=== PATIENT | male | born 1950 | race Caucasian/White ===

== ENCOUNTER 2018-05-24 11:00 | Day surgery (SDC) | payer MEDICARE ==
[2018-05-23 11:38] VITALS: BMI 41.8
--- NOTE | 2018-05-24 15:19 | EKG ---
Test Reason : PREOP MRI Blood Pressure : / mmHG Vent. Rate : 077 BPM Atrial Rate : 077 BPM P-R Int : 166 ms QRS Dur : 138 ms QT Int : 442 ms P-R-T Axes : 058 067 050 degrees QTc Int : 500 ms Normal sinus rhythm Right bundle branch block Abnormal ECG When compared with ECG of 01-AUG-2016 11:08, Right bundle branch block is now Present Confirmed by CONCETTA FRANCE, CLAUDIA ([id number]) on 05/24/2018 3:18:34 PM Referred By: NATAN Confirmed By:CLAUDIA HYLTON MD
[2018-05-24 15:53] LABS: Calc. Creatinine Clearance 163 mL/min (70-130); Estimated GFR-MDRD Greater than 90
== END 2018-05-24 13:15 | disposition home or self-care (01) ==
LOC: SDC/OP 11:00
PROVIDERS: ATTEND Neurological Surgery
DX: M54.16 Radiculopathy, lumbar region (principal); F40.240 Claustrophobia; Z79.899 Other long term (current) drug therapy; Z88.0 Allergy status to penicillin; Z98.890 Other specified postprocedural states
CPT/HCPCS: 82565; 93005; 93010

== ENCOUNTER 2018-06-14 06:51 | Outpatient (CLI) | payer MEDICARE ==
[2018-06-13 09:24] VITALS: BMI 43.9
[2018-06-14 08:04] VITALS: BP 163/86; TEMP 98.3
--- NOTE | 2018-06-14 10:01 | RAD ---
LUMBAR MYELOGRAM: HISTORY: Lumbar radiculopathy. Pain. COMPARISON: None. EXPOSURE: 1.7 minutes 3814.5 mGy per m2. FINDINGS: Initial telephone triage nurse radiograph of the lumbar spine demonstrates five lumbar type vertebral bodies. Vertebr al body height is maintained. Disk space heights are preserved. No spondylolisthesis or spondylosis . Atherosclerosis of the aorta is noted. IMPRESSION: Successful lumbar myelogram. A total of 10 mL of Isovue-200M contrast was administered intrathecally . Contrast was administered at the L2-L3 level. There were no immediate or post procedure complicat ions. TECHNIQUE: Consent obtained to perform a lumbar puncture for intrathecal contrast administration. The patient's back was evaluated. The L2-L3 level was deemed appropriate. The skin was prepped and draped in a s terile fashion, and 1% Lidocaine, buffered with sodium bicarbonate, was used for local anesthesia. U nder fluoroscopic guidance, a 22 gauge spinal needle was advanced into the CSF space. The inner styl et was removed. There was prompt flow of clear CSF into the hub of the needle. Via a short tubing c atheter, a total of 10 mL of Isovue-200M contrast was administered intrathecally. The patient tolera ambreen the procedure well. There were no immediate or post procedure complications. IMPRESSION: Successful lumbar puncture for intrathecal contrast administration. POS: [facility]
--- NOTE | 2018-06-14 11:13 | CT ---
POST MYELOGRAM LUMBAR SPINE CT: HISTORY: Lumbar radiculopathy. COMPARISON: None. TECHNIQUE: Post myelogram lumbar spine CT is performed in the axial plane. Reformatted images are submitted for interpretation. FINDINGS: Nonobstructing calculus in the right renal pelvis, measuring 6 mm. Symmetric attenuation of the psoa s muscles. Atherosclerosis of a nonaneurysmal aorta. Lumbar spine vertebral body height is maintained. No fracture. No spondylolisthesis or spondylolysi s. The conus medullaris terminates at the superior aspect of L1. Lumbar spine vertebral body height is maintained. No malalignment on the coronal reformatted images. The transverse processes are intact. Vacuum joint phenomenon involving both SI joints. Vacuum marcie nt phenomenon in the bilateral facet joints at L4-L5 and in the right facet joint at L5-S1. T11-T12: No significant central canal stenosis or foraminal narrowing. T12-L1: No significant central canal stenosis or foraminal narrowing. L1-L2: No significant central canal stenosis. The neural foramina are patent. L2-L3: No significant central canal stenosis. The neural foramina are patent. There is mild ligame ntum flavum thickening. L3-L4: No significant central canal stenosis. Mild to moderate right and mild left neural foraminal narrowing. L4-L5: There is a generalized disk bulge and posterior element hypertrophy that results in at least mild central canal stenosis. Moderate bilateral neural foraminal narrowing. L5-S1: No high grade central canal stenosis. Moderate to severe bilateral foraminal narrowing. 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 IMPRESSION: 1. Degenerative changes of the lumbar spine, as above. 2. Mild central canal stenosis at L4-L5. 3. Significant neural foraminal narrowing at multiple levels, as detailed above. POS: [facility]
== END 2018-06-14 10:00 | disposition home or self-care (01) ==
LOC: RAD 06:51
PROVIDERS: ATTEND Neurological Surgery
DX: M47.26 Other spondylosis with radiculopathy, lumbar region (principal); M48.061 Spinal stenosis, lumbar region without neurogenic claudication; M99.83 Other biomechanical lesions of lumbar region; E11.9 Type 2 diabetes mellitus without complications; Z98.890 Other specified postprocedural states; Z79.899 Other long term (current) drug therapy
CPT/HCPCS: 62304; 72132

== ENCOUNTER 2018-07-17 07:17 | Day surgery (SDC) | payer MEDICARE ==
[2018-07-11 11:01] VITALS: BMI 42.5
--- NOTE | 2018-07-16 18:43 | HP ---
DATE OF ADMISSION: 07/17/2018 HISTORY OF PRESENT ILLNESS: Mr. 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 He had a similar problem 4 years ago in 2013 and ultimately he had a diskectomy procedure with Dr. Sutton. He has now proceeded to have persistent issues. He h as new myelogram from [place] that reveals bilateral L5 severe foraminal stenosis from the superio r articulating facet of S1 bilaterally that fits his symptoms well. He has treated this with chiropr actics for several weeks, which has not been of much help. He has also had a series of injections, w hich provided near 100% relief, but his pain just returns in short order. He would like to move forw helen with surgery if possible. PAST MEDICAL HISTORY: Significant for hypertension, diabetes and hyperlipidemia. PAST SURGICAL HISTORY: Lumbar diskectomy and prostatectomy. CURRENT MEDICATIONS: Iron, ibuprofen, atorvastatin, hydralazine, valsartan, amlodipine and metformin . PHYSICAL EXAMINATION: NEUROLOGIC: The patient is alert and oriented x3. Gait is severely antalgic. Lower extremity motor exam is normal. ASSESSMENT: Lumbar stenosis. PLAN: Dr. Jaramillo met with the patient, reviewed imaging and advocated for bilateral L5 facetectomies. He explained to the patient the risks, benefits and alternatives to the procedure. The patient exp ressed understanding and would like to move forward with surgery as discussed. I do believe the jurgen ent is mentally competent and capable of making medical decisions for himself. We will move forward with surgery as planned. Prem Madrigal PA-C, dictating for Gunner Jaramillo M.D.
[2018-07-17] MEDS ORDERED: Clindamycin/D5W 900 mg/50 ml Premix Bag ONE (09:01)
[2018-07-17] MEDS ORDERED: Thrombin 5000 UNITS/5 ML VIAL ONE (09:12)
[2018-07-17] MEDS ORDERED: Bupivacaine HCl 0.5%/Epinephrine 1:200,000/PF 30 ml Vial ONE (09:12)
[2018-07-17] MEDS ORDERED: Fentanyl 100 MCG/2 ML VIAL ONE ×4 (09:19→11:52)
[2018-07-17] MEDS ORDERED: Levofloxacin 500 mg/D5W 100 ml Premix Bag ONE (09:28)
[2018-07-17] MEDS ORDERED: Ondansetron HCl/PF 4 MG/2 ML Vial ONE (13:16)
--- NOTE | 2018-07-17 13:16 | OP ---
DATE OF OPERATION: 07/17/2018 SURGEON: Gunner Jaramillo M.D. FOREST MANAGEMENT TEACHER: Prem Madrigal PA-C. INDICATION: Pain. DIAGNOSIS: Bilateral L5 radiculopathies. PROCEDURE: Bilateral L5 hemilaminectomy and medial facetectomies, foraminotomies. ANESTHESIA: General. TECHNIQUE: The patient was brought to the operating room and placed under general anesthesia. He wa s flipped from a supine to prone position on the operating room table. A linear incision was planned at the location of the prior incision. After prepping and draping and after an appropriate operativ e pause, the incision was created, the soft tissues were swept away from midline. A self-retaining r etractor was placed in the wound for optimal exposure. After confirming the appropriate level with C -arm fluoroscopy, 2, 3 and 4 mm Kerrisons were used to perform bilateral hemilaminectomies extending along the inferior aspect of L5. The laminectomy was extended laterally to encompass the medial aspe ct of the facet joint. Foraminotomies performed over the exiting nerve roots. The wounds were irrig ated. Hemostasis was maintained throughout. The wound was then closed in anatomic layers and a pres sure dressing was applied. There were no known procedural complications.
[2018-07-17] MEDS ORDERED: Acetaminophen/Codeine 30-300mg Tablet ONE (13:41)
== END 2018-07-17 13:55 | disposition home or self-care (01) ==
LOC: SDC 07:17
PROVIDERS: ATTEND Neurological Surgery
PROC: 01NB0ZZ Release Lumbar Nerve, Open Approach (ICD-10-PCS; principal; 2018-07-17)
DX: M48.061 Spinal stenosis, lumbar region without neurogenic claudication (principal); M54.16 Radiculopathy, lumbar region; I10 Essential (primary) hypertension; E11.9 Type 2 diabetes mellitus without complications; E78.5 Hyperlipidemia, unspecified; Z79.84 Long term (current) use of oral hypoglycemic drugs; Z79.899 Other long term (current) drug therapy; Z88.0 Allergy status to penicillin; Z98.890 Other specified postprocedural states
CPT/HCPCS: 76001; 96374; J0670; J1956; J2405; J3010; J3490

== ENCOUNTER 2020-02-03 08:57 | Outpatient (CLI) | payer MEDICARE ==
--- NOTE | 2020-02-03 10:35 | ULT ---
BILATERAL CAROTID DUPLEX ULTRASOUND: DATE: 02/03/2020 HISTORY: Left-sided carotid bruit. TECHNIQUE: Rivera scale ultrasound with color flow and spectral Doppler imaging of the extracranial carotid artery systems performed bilaterally. FINDINGS: There is plaque formation bilaterally. The peak systolic velocity in the right ICA measures 106 cm/second with an end-diastolic velocity of 17 cm/second and a systolic ratio of 1.10. The peak systolic velocity in the left ICA measures 113 cm/second with an end-diastolic velocity of 2 1 cm/second and a systolic ratio of 1.00. Flow in both vertebral arteries remains antegrade. IMPRESSION: No evidence of hemodynamically significant stenosis. POS: [facility]
== END 2020-02-03 08:58 | disposition home or self-care (01) ==
LOC: SCSULT 08:57
PROVIDERS: ATTEND Internal Medicine
DX: R09.89 Other specified symptoms and signs involving the circulatory and respiratory systems (principal)
CPT/HCPCS: 93880

== ENCOUNTER 2023-01-12 13:17 | Observation (INO) | payer MEDICARE ==
[2023-01-12] MEDS ORDERED: Fentanyl 250 MCG/5 ML VIAL ONE (14:48)
[2023-01-12] MEDS ORDERED: SUGAMMADEX SODIUM 200 MG/2 ML VIAL ONE (14:49)
[2023-01-12] MEDS ORDERED: Bupivacaine HCl 0.5%/Epinephrine 1:200,000/PF 30 ml Vial ONE (14:57)
[2023-01-12] MEDS ORDERED: Ketorolac Tromethamine 30 MG/ML VIAL ONE (15:15)
[2023-01-12] MEDS ORDERED: GLYCOPYRROLATE/PF 0.2 MG/ML VIAL ONE (15:23)
[2023-01-12] MEDS ORDERED: Lidocaine 1% PF 5 ML VIAL ONE (15:23)
[2023-01-12] MEDS ORDERED: Ondansetron PF 4 MG/2 ML Vial ONE (15:23)
[2023-01-12] MEDS ORDERED: Dexamethasone 20 MG/5 ML VIAL ONE (15:23)
[2023-01-12] MEDS ORDERED: Phenylephrine 10 MG/ML VIAL ONE (15:23)
[2023-01-12] MEDS ORDERED: PROPOFOL 200 MG/20 ML VIAL ONE (15:23)
[2023-01-12] MEDS ORDERED: Rocuronium Bromide 10 MG/ML (10ML VIAL) ONE (15:23)
[2023-01-12] MEDS ORDERED: Metoclopramide HCl 10 MG/2 ML VIAL ONE (15:23)
[2023-01-12] MEDS ORDERED: NEOSTIGMINE 3 MG/3 ML SYR 3 MG/3 ML SYRINGE ONE (15:23)
[2023-01-12] MEDS ORDERED: Sodium Chloride 0.9% 1,000 ML IV SCH (17:00)
[2023-01-12] MEDS ORDERED: Acetaminophen 325 MG TAB PO PRN (17:00)
[2023-01-12] MEDS ORDERED: Morphine 2 MG/ML VIAL SLOW IVP PRN (17:00)
[2023-01-12] MEDS ORDERED: Dextrose 5% in Water 1,000 ML IV PRN ×2 (17:00→17:30)
[2023-01-12] MEDS ORDERED: Dextrose 50% Abboject 50 ML SYRINGE SLOW IVP PRN ×2 (17:00→17:30)
[2023-01-12] MEDS ORDERED: Ipratropium Bromide 2.5 ml Neb NEB PRN (17:07)
[2023-01-12] MEDS ORDERED: Ketorolac Tromethamine 30 MG/ML VIAL IVP PRN (17:23)
[2023-01-12] MEDS ORDERED: Acetaminophen 500 MG TAB PO PRN ×2 (17:23→17:31)
[2023-01-12] MEDS ORDERED: HumaLOG 300 UNITS/3 ML VIAL SC PRN (17:30)
[2023-01-12] MEDS ORDERED: Acetaminophen 500 MG TAB PO SCH (17:30)
[2023-01-12 20:01] VITALS: BMI 37.0
[2023-01-12] MEDS: Famotidine/PF 20 mg/2ml Vial SLOW IVP SCH (20:09)
[2023-01-12] MEDS: Lactated Ringer's 1,000 ML IV SCH (20:09)
[2023-01-12] MEDS: metroNIDAZOLE 500 MG in Premix Bag 1 BAG IVPB SCH (22:12)
[2023-01-13] MEDS: Lactated Ringer's 1,000 ML IV SCH ×2 (00:52→11:39)
[2023-01-13] MEDS: traMADol HCl 50 MG TAB PO PRN ×2 (01:49→08:27)
[2023-01-13] MEDS: metroNIDAZOLE 500 MG in Premix Bag 1 BAG IVPB SCH (05:32)
[2023-01-13 06:39] LABS: #Lymphocytes 0.5 thou/uL (1.20-3.40); #Monocytes 0.9 thou/uL (0.11-0.59); #Neutrophils 13.8 thou/uL (1.40-6.50); %Basophils 0.1 % (0.0-1.0); %Eosinophils 0.1 % (0.0-10.0); %Lymphocytes 3.5 % (21.0-51.0); %Monocytes 5.8 % (0.0-10.0); %Neutrophils 90.5 % (42.0-75.0); Hemoglobin 13.9 g/dL (14.0-18.0); Mean Corpuscular HGB CONC 32.1 g/dL (32.0-36.0); Mean Corpuscular Hemoglobin 32.5 pg (27.0-31.0); Mean Platelet Volume 8.6 fL (7.4-10.4); Platelet Count 163 10x3/uL (130-400); RBC Distribution Width 12.3 % (11.5-14.5); Red Blood Cell (RBC) Count 4.27 mill/uL (4.70-6.10); White Blood Cell (WBC) Count 15.2 10x3/uL (4.8-10.8)
[2023-01-13 07:02] LABS: Hemoglobin A1c 6.6 % (4.0-6.0)
[2023-01-13 07:10] LABS: Anion Gap 18 mmol/L (10-20); BUN (Urea Nitrogen) 13 mg/dL (8.4-25.7); Calc. Creatinine Clearance 130 mL/min (70-130); Calcium 9.3 mg/dL (7.8-10.44); Carbon Dioxide 16 mmol/L (23-31); Chloride 107 mmol/L (98-107); Estimated GFR 91; Glucose 145 mg/dL (83-110); Potassium 4.4 mmol/L (3.5-5.1); Sodium 137 mmol/L (136-145)
[2023-01-13] MEDS: Famotidine/PF 20 mg/2ml Vial SLOW IVP SCH (08:28)
[2023-01-13 12:27] VITALS: BP 136/74; TEMP 98
== END 2023-01-13 12:35 | disposition home or self-care (01) ==
LOC: SDC 13:17 → SURG A 18:53
PROVIDERS: ADMIT Specialist; ATTEND Specialist
PROC: 0DTJ4ZZ Resection of Appendix, Percutaneous Endoscopic Approach (ICD-10-PCS; principal; 2023-01-12)
DX: K35.33 Acute appendicitis with perforation, localized peritonitis, and gangrene, with abscess (principal); E78.00 Pure hypercholesterolemia, unspecified; E11.9 Type 2 diabetes mellitus without complications; I10 Essential (primary) hypertension; N47.1 Phimosis; E66.9 Obesity, unspecified; Z68.37 Body mass index [BMI] 37.0-37.9, adult; Z85.46 Personal history of malignant neoplasm of prostate; Z92.3 Personal history of irradiation; Z79.84 Long term (current) use of oral hypoglycemic drugs; Z79.899 Other long term (current) drug therapy; Z88.0 Allergy status to penicillin; E78.5 Hyperlipidemia, unspecified; Z20.822 Contact with and (suspected) exposure to COVID-19
CPT/HCPCS: 44970; 74177; 80048; 80053; 82962 ×2; 83036; 83605; 83690; 85025 ×2; 87040; 87086; 93005; 96374; 96375; 96376; 99285; J3490; U0002; 36415; 36416; 81003; 81015; 88304; A4649; J1100; J1885; J1956; J2270; J2370; J2405; J2543; J2704; J2765; J3010; J7120; Q9967; S0028

== ENCOUNTER 2023-10-18 11:01 | Outpatient (CLI) | payer MEDICARE ==
[2023-10-18 13:52] LABS: Hematocrit 43.8 % (38.8-50.0); Hemoglobin 14.4 g/dL (13.5-17.5); Mean Corpuscular HGB CONC 32.9 g/dL (32.0-36.0); Mean Corpuscular Hemoglobin 31.1 pg (27.0-33.0); Mean Corpuscular Volume 94.6 fl (81.2-95.1); Mean Platelet Volume 10.3 fl (7.4-10.4); Platelet Count 271 10x3/uL (150-450); RBC Distribution Width 12.5 % (11.5-14.5); Red Blood Cell (RBC) Count 4.63 10x6/uL (4.32-5.72); White Blood Cell (WBC) Count 12.5 10x3/uL (3.5-10.5)
[2023-10-18 14:02] LABS: Anion Gap 19 mmol/L (10-20); BUN (Urea Nitrogen) 25 mg/dL (8.4-25.7); Calc. Creatinine Clearance 0 mL/min (70-130); Calcium 9.3 mg/dL (7.8-10.44); Carbon Dioxide 19 mmol/L (23-31); Chloride 102 mmol/L (98-107); Estimated GFR 52; Glucose 127 mg/dL (83-110); Potassium 4.6 mmol/L (3.5-5.1); Sodium 135 mmol/L (136-145)
[2023-10-18 14:33] LABS: PTT 30.9 sec (22.0-33.0); Prothrombin Time 10.9 sec (9.5-12.1)
== END 2023-10-18 11:02 | disposition home or self-care (01) ==
LOC: LABBT 11:01
PROVIDERS: ATTEND Urology
DX: Z01.812 Encounter for preprocedural laboratory examination (principal); N13.2 Hydronephrosis with renal and ureteral calculous obstruction; E11.65 Type 2 diabetes mellitus with hyperglycemia; C61 Malignant neoplasm of prostate; I11.9 Hypertensive heart disease without heart failure; K64.9 Unspecified hemorrhoids; E66.01 Morbid (severe) obesity due to excess calories; R33.9 Retention of urine, unspecified; N32.81 Overactive bladder
CPT/HCPCS: 80048; 85027; 85610; 85730

== ENCOUNTER 2023-10-25 10:54 | Day surgery (SDC) | payer MEDICARE ==
[2023-10-18 11:46] VITALS: BMI 33.5
[2023-10-25] MEDS ORDERED: Lidocaine 1% PF 5 ML VIAL ONE ×2 (11:48→14:26)
[2023-10-25] MEDS ORDERED: PROPOFOL 20 ML ONE (11:48)
[2023-10-25] MEDS ORDERED: PROPOFOL 40 ML ONE (14:26)
[2023-10-25] MEDS ORDERED: Rocuronium Bromide 10 MG/ML (10ML VIAL) ONE (14:26)
[2023-10-25] MEDS ORDERED: fentaNYL PF 100 MCG/2 ML SYRINGE ONE (14:26)
[2023-10-25] MEDS ORDERED: Ondansetron PF 4 MG/2 ML Vial ONE (14:26)
[2023-10-25] MEDS ORDERED: Dexamethasone 4 mg/ml Vial ONE (14:26)
[2023-10-25] MEDS ORDERED: SUGAMMADEX SODIUM 200 MG/2 ML VIAL ONE (14:27)
[2023-10-25] MEDS ORDERED: LevoFLOXacin D5W 500 mg (100 mL) BAG ONE (14:32)
[2023-10-25] MEDS ORDERED: Esmolol 100 MG/10 ML VIAL ONE (16:48)
[2023-10-25] MEDS ORDERED: PHENYLEPHRINE-NS 100 MCG/ML 10 ML SYRINGE ONE (16:48)
== END 2023-10-25 19:25 | disposition home or self-care (01) ==
LOC: SDC 10:54
PROVIDERS: ATTEND Urology
PROC: 0TC78ZZ Extirpation of Matter from Left Ureter, Via Natural or Artificial Opening Endoscopic (ICD-10-PCS; principal; 2023-10-25)
PROC: 0TC68ZZ Extirpation of Matter from Right Ureter, Via Natural or Artificial Opening Endoscopic (ICD-10-PCS; 2023-10-25)
PROC: 0T768DZ Dilation of Right Ureter with Intraluminal Device, Via Natural or Artificial Opening Endoscopic (ICD-10-PCS; 2023-10-25)
DX: N20.2 Calculus of kidney with calculus of ureter (principal); N35.919 Unspecified urethral stricture, male, unspecified site; Z88.0 Allergy status to penicillin
CPT/HCPCS: 52356; 82365; C1713; C1747; C1769; C2617; 88300; J1100; J1956; J2405; J2704